=== PATIENT | male | born 1980 | race African-American/Black ===

== ENCOUNTER 2022-02-01 10:00 | Inpatient (IN) | payer OTHER ==
[~2022-02-01] VITALS: Ht 185.4 cm; Wt 150.1 kg
[2022-02-18 11:59] LABS: BASOPHILS % (AUTO) 0.6 % (0.0-5.0); EOSINOPHILS % (AUTO) 2.4 % (0.0-8.0); LYMPHOCYTES % (AUTO) 33.5 % (21.0-51.0); MEAN CORPUSCULAR HEMOGLOBIN 29.3 pg (27.0-33.0); MEAN CORPUSCULAR HGB CONC 32.9 g/dL (32.0-36.0); MEAN CORPUSCULAR VOLUME 89.1 fL (79-99); MONOCYTES % (AUTO) 7.3 % (3.0-13.0); NEUTROPHILS % (AUTO) 55.8 % (40.0-77.0); PLATELET COUNT (AUTO) 293 K/uL (130-400); RED BLOOD CELL COUNT(AUTO) 5.05 MIL/uL (4.50-6.20); RED CELL DISTRIBUTION WIDTH 13.7 % (11.0-15.5); WHITE BLOOD COUNT (AUTO) 5.4 K/uL (4.8-10.8)
[2022-02-18 12:03] LABS: APPEARANCE,URINE CLEAR (CLEAR); BILIRUBIN,URINE NEGATIVE (NEGATIVE); COLOR,URINE YELLOW (YELLOW); GLUCOSE, URINE (UA) NEGATIVE (NEGATIVE); KETONES,URINE NEGATIVE (NEGATIVE); LEUKOCYTE ESTERASE ,URINE NEGATIVE (NEGATIVE); NITRATE,URINE NEGATIVE (NEGATIVE); OCCULT BLOOD,URINE NEGATIVE (NEGATIVE); PROTEIN,URINE NEGATIVE (NEGATIVE)
[2022-02-18 12:09] LABS: INR 0.93 (0.85-1.15); PROTHROMBIN TIME 10.1 SEC (9.6-11.6)
[2022-02-18 12:15] LABS: CREATININE 1.1 mg/dL (0.5-1.5)
[2022-02-18 12:39] VITALS: BP 153/87
[2022-02-18] MEDS ORDERED: ACET-66 PO (12:48)
[2022-02-18] MEDS ORDERED: NAPR-1023 PO (12:48)
[2022-02-18] MEDS ORDERED: SIMV5TAB58 PO (12:48)
[2022-02-18] MEDS ORDERED: IBUP-2070 PO (12:48)
[2022-02-21] VITALS (21 sets, daily range): BP systolic 110–158; BP diastolic 59–98
[2022-02-21] MEDS ORDERED: CEFAZOLIN SODIUM 3 GM in DEXTROSE 5%-WATER 100 ML IVP ONE (08:00)
[2022-02-21] MEDS ORDERED: LACTATED RINGERS 1000ML 1,000 ML IV ONE (09:40)
[2022-02-21] MEDS ORDERED: CEFAZOLIN SODIUM 1 GM VIAL ONE ×3 (09:40→21:43)
[2022-02-21] MEDS ORDERED: PRAZ2CAP2 PO ×2 (10:22)
[2022-02-21] MEDS ORDERED: SERT-440 PO (10:22)
[2022-02-21] MEDS ORDERED: METOCLOPRAMIDE 10 MG/2 ML VIAL ONE (14:39)
[2022-02-21] MEDS ORDERED: ACETAMINOPHEN 500 MG TABLET ONE (14:39)
[2022-02-21] MEDS ORDERED: KETOROLAC 15MG/ML VIAL (15MG/ML) ONE (14:40)
[2022-02-21] MEDS ORDERED: TRANEXAMIC ACID 1000MG/10ML ONE ×2 (15:07→19:18)
[2022-02-21] MEDS ORDERED: SUCCINYLCHOLINE CHLORIDE 20 MG/ML 10 ML VIAL ONE (16:31)
[2022-02-21] MEDS ORDERED: MIDAZOLAM HCL 1 MG/ML 2ML VIAL ONE (16:32)
[2022-02-21] MEDS ORDERED: PROPOFOL 10 MG/ML 20ML VIAL IV ONE (16:32)
[2022-02-21] MEDS ORDERED: ROCURONIUM 10MG/1ML SYR 10 MG/ML ML ONE ×3 (16:32→18:02)
[2022-02-21] MEDS ORDERED: FENTANYL CITRATE PF 50 MCG/1 ML 2ML VIAL ONE ×2 (16:33→17:29)
[2022-02-21] MEDS ORDERED: POTASSIUM CHLORIDE 10% ELIXIR 20 MEQ/15 ML UDCUP PO PRN (19:30)
[2022-02-21] MEDS ORDERED: DiphenhydrAMINE HCL 50 MG/ML VIAL IVP PRN (19:30)
[2022-02-21] MEDS ORDERED: ONDANSETRON 4MG INJ IVP PRN (19:30)
[2022-02-21] MEDS: 0.9%NACL 1000ML 1,000 ML IV SCH (19:30)
[2022-02-21] MEDS: ACETAMINOPHEN 500 MG TABLET PO SCH (19:30)
[2022-02-21] MEDS ORDERED: OXYCODONE HCL 5 MG TAB PO PRN (19:30)
[2022-02-21] MEDS ORDERED: KCL 20 MEQ ERTAB PO PRN (19:30)
[2022-02-21] MEDS ORDERED: LIDOCAINE HCL-MPF 1% 2ML VIAL IV PRN (19:30)
[2022-02-21] MEDS ORDERED: CALCIUM CARB 500MG PO PRN (19:30)
[2022-02-21] MEDS ORDERED: POTASSIUM CHLORIDE 20MEQ/100ML 100 ML IV PRN (19:30)
[2022-02-21] MEDS ORDERED: KETOROLAC 15MG/ML VIAL (15MG/ML) IV PRN (19:30)
[2022-02-21] MEDS ORDERED: FERROUS FUMARATE 324 MG TABLET PO PRN (19:30)
[2022-02-21] MEDS ORDERED: TRAMADOL HCL 50 MG TABLET PO PRN (19:30)
[2022-02-21] MEDS ORDERED: GLYCOPYRROLATE 1 MG/5 ML SYRINGE ONE (19:43)
[2022-02-21] MEDS ORDERED: NEOSTIGMINE 5MG/5ML SYR IV ONE (19:43)
[2022-02-21] MEDS: CELECOXIB 200 MG CAP PO SCH (21:16)
[2022-02-21] MEDS: ASPIRIN 81 MG EC TAB PO SCH (21:16)
[2022-02-21] MEDS: FAMOTIDINE 20MG TAB PO SCH (21:16)
[2022-02-21] MEDS: OXYCODONE HCL 5 MG TAB PO PRN (21:18)
[2022-02-21] MEDS: PREGABALIN 25 MG CAP PO SCH (21:56)
[2022-02-21] MEDS: CEFAZOLIN SODIUM 3 GM in DEXTROSE 5%-WATER 100 ML IVP SCH (21:57)
[2022-02-22] VITALS (9 sets, daily range): BP systolic 108–152; BP diastolic 61–82
[2022-02-22 05:18] LABS: HEMATOCRIT 36.3 % (42-54); MEAN CORPUSCULAR HEMOGLOBIN 29.7 pg (27.0-33.0); MEAN CORPUSCULAR HGB CONC 33.3 g/dL (32.0-36.0); RED BLOOD CELL COUNT(AUTO) 4.08 MIL/uL (4.50-6.20); RED CELL DISTRIBUTION WIDTH 13.8 % (11.0-15.5); WHITE BLOOD COUNT (AUTO) 7.6 K/uL (4.8-10.8)
[2022-02-22] MEDS: 0.9%NACL 1000ML 1,000 ML IV SCH ×2 (05:30→15:30)
[2022-02-22 05:50] LABS: CREATININE 1.1 mg/dL (0.5-1.5); POTASSIUM 4.1 mmol/L (3.5-5.1)
[2022-02-22] MEDS ORDERED: CEFAZOLIN SODIUM 1 GM VIAL ONE ×2 (06:41→06:47)
[2022-02-22] MEDS: CEFAZOLIN SODIUM 3 GM in DEXTROSE 5%-WATER 100 ML IVP SCH (06:42)
[2022-02-22] MEDS: ACETAMINOPHEN 500 MG TABLET PO SCH ×3 (06:43→19:30)
[2022-02-22] MEDS: OXYCODONE HCL 5 MG TAB PO PRN ×2 (06:44→15:49)
[2022-02-22] MEDS: ASPIRIN 81 MG EC TAB PO SCH ×2 (08:59→21:00)
[2022-02-22] MEDS: PREGABALIN 25 MG CAP PO SCH ×2 (08:59→21:00)
[2022-02-22] MEDS: FAMOTIDINE 20MG TAB PO SCH ×2 (09:00→21:00)
[2022-02-22] MEDS: CELECOXIB 200 MG CAP PO SCH ×2 (09:00→21:00)
[2022-02-22] MEDS: POLYETHYLENE GLYCOL 3350 17 GM POWD.PACK PO SCH (09:02)
[2022-02-22] MEDS: TAMSULOSIN HCL 0.4 MG CAP.ER.24H PO SCH (09:02)
[2022-02-23] MEDS: OXYCODONE HCL 5 MG TAB PO PRN ×4 (02:46→19:39)
[2022-02-23] MEDS: ACETAMINOPHEN 500 MG TABLET PO SCH ×3 (02:47→22:19)
[2022-02-23 05:07] VITALS: BP 138/79
[2022-02-23 07:57] VITALS: BP 139/93
[2022-02-23] MEDS: TAMSULOSIN HCL 0.4 MG CAP.ER.24H PO SCH (09:00)
[2022-02-23] MEDS: ASPIRIN 81 MG EC TAB PO SCH ×2 (09:10→19:37)
[2022-02-23] MEDS: FAMOTIDINE 20MG TAB PO SCH ×2 (09:10→19:37)
[2022-02-23] MEDS: POLYETHYLENE GLYCOL 3350 17 GM POWD.PACK PO SCH (09:10)
[2022-02-23] MEDS: CELECOXIB 200 MG CAP PO SCH ×2 (09:10→19:37)
[2022-02-23] MEDS: PREGABALIN 25 MG CAP PO SCH ×2 (09:11→19:37)
[2022-02-23 11:36] VITALS: BP 142/83
[2022-02-23 16:00] VITALS: BP 153/79
[2022-02-23 20:00] VITALS: BP 155/78
[2022-02-24] VITALS: BP 135/65
[2022-02-24] MEDS: OXYCODONE HCL 5 MG TAB PO PRN (00:44)
[2022-02-24] MEDS ORDERED: BISACODYL 10 MG SUPP.RECT RC PRN (19:30)
== END 2022-02-24 01:55 | DRG 470 ==
LOC: DAHIP 02-21 09:55 → 4AH 02-21 21:00
PROVIDERS: ADMIT Orthopaedic Surgery; ATTEND Orthopaedic Surgery
PROC: 3E0T3BZ Introduction of Anesthetic Agent into Peripheral Nerves and Plexi, Percutaneous Approach (ICD-10-PCS; 2022-02-21)
PROC: 3E0T33Z Introduction of Anti-inflammatory into Peripheral Nerves and Plexi, Percutaneous Approach (ICD-10-PCS; 2022-02-21)
PROC: 0SRC0J9 Replacement of Right Knee Joint with Synthetic Substitute, Cemented, Open Approach (ICD-10-PCS; principal; 2022-02-21 16:24)
DX: M17.11 Unilateral primary osteoarthritis, right knee (principal); Z20.822 Contact with and (suspected) exposure to COVID-19; D64.89 Other specified anemias; F32.A Depression, unspecified; F41.9 Anxiety disorder, unspecified; E78.5 Hyperlipidemia, unspecified; Z80.0 Family history of malignant neoplasm of digestive organs; Z90.49 Acquired absence of other specified parts of digestive tract
CPT/HCPCS: 36415; 80048; 81003; 85025; 85027; 85610; 87088; 87426; 87635; 87641; 97039; G0378; J0330; J0690; J1885; J2250; J2704; J2710; J2765; J3010; J3490; J7060; J7120

== ENCOUNTER 2022-03-24 07:38 | Observation (INO) | payer OTHER ==
[2022-03-23 15:11] LABS: BASOPHILS % (AUTO) 0.4 % (0.0-5.0); EOSINOPHILS % (AUTO) 3.7 % (0.0-8.0); HEMATOCRIT 40.9 % (42-54); LYMPHOCYTES % (AUTO) 28.1 % (21.0-51.0); MEAN CORPUSCULAR HEMOGLOBIN 29.6 pg (27.0-33.0); MEAN CORPUSCULAR HGB CONC 32.5 g/dL (32.0-36.0); MEAN CORPUSCULAR VOLUME 91.1 fL (79-99); MONOCYTES % (AUTO) 8.8 % (3.0-13.0); NEUTROPHILS % (AUTO) 58.8 % (40.0-77.0); PLATELET COUNT (AUTO) 247 K/uL (130-400); RED BLOOD CELL COUNT(AUTO) 4.49 MIL/uL (4.50-6.20); RED CELL DISTRIBUTION WIDTH 13.7 % (11.0-15.5); WHITE BLOOD COUNT (AUTO) 4.9 K/uL (4.8-10.8)
[2022-03-23 15:19] VITALS: BP 136/77
[2022-03-23 15:20] LABS: CREATININE 1.1 mg/dL (0.5-1.5); POTASSIUM 3.9 mmol/L (3.5-5.1)
[~2022-03-24] VITALS: Ht 185.4 cm; Wt 141.7 kg
[2022-03-24] VITALS (18 sets, daily range): BP systolic 120–155; BP diastolic 74–99
[~2022-03-24 07:38] MED LIST: ACET-2079 PO; CEFAZOLIN SODIUM 1 GM VIAL IVP SCH; DOCU100C33 PO; LACTATED RINGERS 1000ML 1,000 ML IV ONE
[2022-03-24] MEDS ORDERED: ROPIVACAINE 0.5% 5MG/ML 30ML IJ ONE ×3 (08:22→10:00)
[2022-03-24] MEDS ORDERED: MIDAZOLAM HCL 1 MG/ML 2ML VIAL ONE (08:24)
[2022-03-24] MEDS ORDERED: LIDOCAINE PF 100MG/5ML (2%) SYRINGE 5ML ONE (08:24)
[2022-03-24] MEDS ORDERED: PROPOFOL 10 MG/ML 20ML VIAL IV ONE ×2 (08:24→08:25)
[2022-03-24] MEDS ORDERED: ROCURONIUM 10MG/1ML SYR 10 MG/ML ML ONE (08:24)
[2022-03-24] MEDS ORDERED: FENTANYL CITRATE PF 50 MCG/1 ML 2ML VIAL ONE (08:25)
[2022-03-24] MEDS ORDERED: MEPERIDINE-PF 25 MG/ML SYG ONE ×2 (09:24→09:59)
[2022-03-24] MEDS ORDERED: TRAMADOL HCL 50 MG TABLET PO PRN (09:30)
[2022-03-24] MEDS: 0.9%NACL 1000ML 1,000 ML IV SCH ×2 (09:30→19:30)
[2022-03-24] MEDS ORDERED: OXYCODONE HCL 5 MG TAB PO PRN (09:30)
[2022-03-24] MEDS ORDERED: ACETAMINOPHEN 500 MG TABLET PO SCH (09:30)
[2022-03-24] MEDS ORDERED: ONDANSETRON 4MG INJ IVP PRN (09:30)
[2022-03-24] MEDS: KETOROLAC 15MG/ML VIAL (15MG/ML) IV PRN ×2 (09:40→11:29)
[2022-03-24] MEDS: OXYCODONE HCL 5 MG TAB PO PRN ×2 (11:28→20:06)
[2022-03-24] MEDS: CELECOXIB 200 MG CAP PO SCH (20:06)
[2022-03-24] MEDS ORDERED: ENOXAPARIN SODIUM 40 MG/0.4 ML SYRINGE SQ ONE (21:00)
[2022-03-24] MEDS: ACETAMINOPHEN 500 MG TABLET PO SCH (21:44)
[2022-03-25] VITALS: BP 106/76
[2022-03-25] MEDS: OXYCODONE HCL 5 MG TAB PO PRN ×5 (00:27→16:49)
[2022-03-25] MEDS: 0.9%NACL 1000ML 1,000 ML IV SCH (01:48)
[2022-03-25 03:42] VITALS: BP 132/70
[2022-03-25] MEDS: ACETAMINOPHEN 500 MG TABLET PO SCH ×2 (04:03→14:00)
[2022-03-25 07:15] VITALS: BP 135/78
[2022-03-25] MEDS: CELECOXIB 200 MG CAP PO SCH (07:58)
[2022-03-25] MEDS ORDERED: POLYETHYLENE GLYCOL 3350 17 GM POWD.PACK PO SCH (09:00)
[2022-03-25 11:15] VITALS: BP 137/78
[2022-03-25 15:10] VITALS: BP 138/78
[2022-03-25] MEDS ORDERED: OXYC-38 PO ×2 (16:55→17:09)
[2022-03-25] MEDS ORDERED: AEC81 PO (17:09)
[2022-03-25] MEDS ORDERED: ENOXAPARIN SODIUM 40 MG/0.4 ML SYRINGE SQ SCH (17:30)
[2022-03-27] MEDS ORDERED: BISACODYL 10 MG SUPP.RECT RC PRN (09:30)
== END 2022-03-25 18:58 | disposition home health service (06) ==
LOC: DAH 07:38 → DAHIP 07:39 → 4AH 10:21
PROVIDERS: ADMIT Orthopaedic Surgery; ATTEND Orthopaedic Surgery
DX: M25.661 Stiffness of right knee, not elsewhere classified (principal); Z20.822 Contact with and (suspected) exposure to COVID-19; F41.8 Other specified anxiety disorders; F43.10 Post-traumatic stress disorder, unspecified; E78.5 Hyperlipidemia, unspecified; Z47.1 Aftercare following joint replacement surgery; Z79.899 Other long term (current) drug therapy
CPT/HCPCS: 80048; 85025; 87426; 36415; 27570; 96374; 96372 ×2; 73564; 97161; 97039 ×2; 97530 ×5; 97116 ×2; G0378 ×32; A4663; J7120 ×2; J3010; J0690; J2001; J2250; J2704 ×2; J1650; J2175 ×2; J2795 ×3; J1885 ×3; A4215; A4223; A4222; A4221